=== PATIENT | female | born 1990 | race American Indian/Alaskan Native ===

== ENCOUNTER 2017-10-24 11:00 | Outpatient (CLI) | payer OTHER | END 2017-10-24 11:01 | disposition home or self-care (01) | LOC: SLR 11:00 | PROVIDERS: ATTEND Otolaryngology | DX: G47.30 Sleep apnea, unspecified (principal); R40.0 Somnolence; R06.83 Snoring | CPT/HCPCS: G0399 ==

== ENCOUNTER 2020-06-14 20:38 | Inpatient (IN) | payer OTHER, MEDICAID ==
[2020-06-14] MEDS ORDERED: TERBUTALINE 1 MG/1 ML INJ SUB-Q PRN (21:58)
[2020-06-14] MEDS ORDERED: ACETAMINOPHEN 325 MG TAB PO PRN (21:58)
[2020-06-14] MEDS ORDERED: ePHEDrine SULFATE 50 MG/1 ML INJ IV PRN (21:58)
[2020-06-14] MEDS ORDERED: LIDOCAINE (2%) 20 MG/1 ML VIAL 20 ML MDV INFILTRATI ONE (21:58)
[2020-06-14] MEDS ORDERED: MINERAL OIL 30 ML ORAL LIQD PO PRN (21:58)
[2020-06-14] MEDS ORDERED: LACTATED RINGERS 1,000 ML IV SCH (22:00)
[2020-06-14] MEDS ORDERED: OXYTOCIN DRIP 30 UNITS/500 ML BAG IV SCH (22:00)
[2020-06-14 22:17] LABS: Hematocrit 27.6 % (30.3-42.9); Mean Corpuscular HGB Conc 33 % (30-34); Mean Corpuscular Volume 82 fl (79-97); Platelet Count 242 K/mm3 (140-440); Red Blood Count 3.39 M/mm3 (3.65-5.03); Red Cell Distribution Width 13.7 % (13.2-15.2)
[2020-06-14] MEDS ORDERED: DINOPROSTONE 10 MG VAG SUPP VG ONE (23:10)
[2020-06-15] MEDS ORDERED: DINOPROSTONE 10 MG VAG SUPP VG ONE (00:30)
[2020-06-15] MEDS ORDERED: LACTATED RINGERS 1,000 ML IV ONE (01:19)
[2020-06-15] MEDS ORDERED: OXYTOCIN DRIP 30 UNITS/500 ML BAG IV SCH ×2 (08:00→15:02)
--- NOTE | 2020-06-15 08:29 | History and Physical Report ---
History of Present Illness Date of examination: 06/15/20 Date of admission: 06/14/20 21:58 Chief complaint: induction of labor for morbid obesity History of present illness: Pt is a 29 year old -[place] 06/19/20 at 39w3d who presents for induction of labor for morbid obesity. She denies vaginal bleeding or leakage of fluid. She has had care at [facility] since 10wks complicated by morbid obesity, sma carrier status and close interval . She is GBS negative. Past History Past Medical History: no pertinent history Past Surgical History: gastric bypass (gastric sleeve ) Family/Genetic History: none Social history: no significant social history - Obstetrical History Expected Date of Delivery: 06/19/20 Actual Gestation: 39 Week(s) 3 Day(s) : 4 Para: 1 Hx # Term Pregnancies: 1 Number of Pregnancies: 0 Spontaneous Abortions: 2 Induced : 0 Number of Living Children: 1 Medications and Allergies Allergies Allergy/AdvReac Type Severity Reaction Status Date / Time No Known Allergies Allergy Unverified 06/01/19 22:38 Home Medications Medication Instructions Recorded Confirmed Last Taken Type Omeprazole 20 mg PO DAILY 06/14/20 06/14/20 06/14/20 History Active Meds: Active Medications Acetaminophen (Acetaminophen 325 Mg Tab) 650 mg PO Q4H PRN PRN Reason: Pain, Mild (1-3) Butorphanol Tartrate (Butorphanol 2 Mg/1 Ml Inj) 2 mg IV Q2H PRN PRN Reason: Pain , Severe (7-10) Ephedrine Sulfate (Ephedrine Sulfate 50 Mg/1 Ml Inj) 10 mg IV Q2M PRN PRN Reason: Hypotension Lactated Ringer's (Lactated Ringers) 1,000 mls @ 125 mls/hr IV DIRECT VIJAY Last Admin: 06/15/20 08:05 Dose: 125 mls/hr Documented by: Oxytocin/Sodium Chloride (Pitocin/Ns 30 Unit/500ml) 30 units in 500 mls @ 40 mls/hr IV TITR VIJAY Oxytocin/Sodium Chloride (Pitocin/Ns 30 Unit/500ml) 30 units in 500 mls @ 2 mls/hr IV TITR VIJAY; Protocol Last Admin: 06/15/20 08:05 Dose: 2 ml/hrs, 2 mls/hr Documented by: Mineral Oil (Mineral Oil 30 Ml Oral Liqd) 30 ml PO QHS PRN PRN Reason: Constipation Terbutaline Sulfate (Terbutaline 1 Mg/1 Ml Inj) 0.25 mg SUB-Q ONCE PRN PRN Reason: Hyperstimulation/Hypertonicity Review of Systems All systems: negative - Vital Signs Vital signs: Vital Signs Pulse BP 93 H 113/73 06/14/20 21:26 06/14/20 21:26 Temp Pulse Resp BP Pulse Ox 98.5 F 76 18 115/55 98 06/15/20 07:02 06/15/20 07:02 06/15/20 07:02 06/15/20 07:02 06/15/20 07:02 - Physical Exam Breasts: Positive: deferred Abdomen: Positive: soft (obese, gravid ) Genitourinary (Female): Positive: normal external genitalia Uterus: Positive: enlarged (gravid ) Extremities: Positive: normal - Obstetrical FHR: auscultation normal Uterine Contraction Monitor Mode: External Cervical Dilatation: 1 Cervical Effacement Percentage: 50 station: -3 Uterine Contraction Pattern: Irregular Uterine Tone Measurement Phase: Resting Uterine Contraction Intensity: Strong/Firm Results Result Diagrams: 06/14/20 21:45 Abnormal lab results 06/14/20 Range/Units 21:45 RBC 3.39 L (3.65-5.03) M/mm3 Hgb 9.0 L (10.1-14.3) gm/dl Hct 27.6 L (30.3-42.9) % MCH 27 L (28-32) pg All other labs normal. Assessment and Plan A: IUP at 39w3d Morbid Obesity GBS Negative P: Admit to labor and delivery Routine intrapartum care Closely monitor maternal and status
[2020-06-15] MEDS: BUTORPHANOL 2 MG/1 ML INJ IV PRN ×2 (09:37→11:42)
[2020-06-15] MEDS ORDERED: LIDOCAINE (2%) 20 MG/1 ML VIAL 20 ML MDV INFILTRATI ONE (13:10)
--- NOTE | 2020-06-15 13:34 | Procedure Note ---
OB Delivery Note - Delivery Date of Delivery: 06/15/20 Surgeon: KARLO SOOD Estimated blood loss: 300cc - Vaginal Delivery presentation: vertex Delivery position: OA Intrapartum events: PROM->1hr before delivery, mult.variable deceleratio Delivery induction: cervidil Delivery augmentation: pitocin Delivery monitor: external FHT, external uterine Route of delivery: Delivery placenta: spontaneous Delivery cord: nuchal cord Episiotomy: none Delivery laceration: 2nd degree Delivery repair: vicryl Anesthesia: local, intravenous - Infant A at 1 minute: 8 at 5 minutes: 9 Infant Gender: Male (3653g (8lb 0.8 oz) @ 1302 pm)
[2020-06-15] MEDS ORDERED: diphenhydrAMINE 25 MG CAP PO PRN (15:02)
[2020-06-15] MEDS ORDERED: PROMETHAZINE 25 MG RECT SUPP PR PRN (15:02)
[2020-06-15] MEDS ORDERED: PROMETHAZINE 25 MG TAB PO PRN (15:02)
[2020-06-15] MEDS ORDERED: LANOLIN/ZINC/DIMETHICONE (LANSINOH) 7 GM TP PRN ×2 (15:02)
[2020-06-15] MEDS ORDERED: BENZOCAINE/MENTHOL 20/0.5% TOP SPRAY 56 GM TP PRN (15:02)
[2020-06-15] MEDS ORDERED: WITCH HAZEL/ GLYCERIN PAD TP PRN (15:02)
[2020-06-15] MEDS ORDERED: MAGNESIUM HYDROXIDE (MOM) ORAL LIQD UDC PO PRN (15:02)
[2020-06-15] MEDS ORDERED: ONDANSETRON 4 MG/2 ML INJ IV PRN (15:02)
[2020-06-15] MEDS: IBUPROFEN 600 MG TAB PO SCH (22:53)
[2020-06-15] MEDS: FERROUS SULFATE 325 MG TAB PO SCH (23:03)
[2020-06-15] MEDS: HYDROcodone/ACETAMINOPHEN 5-325 MG TAB PO PRN (23:05)
[2020-06-16 01:43] LABS: Hematocrit 25.4 % (30.3-42.9); Hemoglobin 8.3 gm/dl (10.1-14.3)
[2020-06-16] MEDS: IBUPROFEN 600 MG TAB PO SCH ×2 (02:17→06:02)
[2020-06-16] MEDS: HYDROcodone/ACETAMINOPHEN 5-325 MG TAB PO PRN ×2 (05:31→12:01)
[2020-06-16] MEDS ORDERED: DIPHtheria,PERTUSSIS(ACELL),TETANUS VACCINE/PF 0.5 ML VIAL IM ONE (06:00)
[2020-06-16] MEDS ORDERED: MEASLES, MUMPS & RUBELLA 12,500 UNIT/0.5 ML VACCINE SUB-Q ONE (06:00)
[2020-06-16] MEDS: FERROUS SULFATE 325 MG TAB PO SCH (09:51)
[2020-06-16] MEDS ORDERED: PRENATAL VIT27-FE FUMARATE-FOLIC ACID VIT TAB PO SCH (10:00)
[2020-06-16 10:07] VITALS: BP 125/73
--- NOTE | 2020-06-16 12:37 | Progress Note ---
Assessment and Plan A: PPD1 s/p Acute on chronic anemia due to and blood loss Vital signs stable P: Discharge to home today with ferrous sulfate supplementation Subjective - Subjective Date of service: 06/16/20 Principal diagnosis: s/p Interval history: PPD1 s/p Patient reports: appetite normal, voiding normally, pain well controlled, ambulating normally [place]: doing well, bottle feeding Objective - Vital Signs Latest vital signs: Vital Signs Temp Pulse Resp BP BP Pulse Ox 06/16/20 12:01 18 06/16/20 08:49 97.6 F 86 18 125/73 100 06/16/20 06:26 18 06/16/20 05:31 18 06/16/20 00:31 98.2 F 94 H 20 98/47 98 06/16/20 00:05 18 06/15/20 23:05 18 06/15/20 20:00 98.2 F 81 20 126/65 98 06/15/20 15:17 98.0 F 73 18 121/57 99 06/15/20 15:02 18 06/15/20 14:18 75 128/64 06/15/20 14:17 73 144/72 06/15/20 14:15 58 L 96 06/15/20 14:10 75 96 06/15/20 14:09 98.3 F 76 18 128/66 128/66 97 06/15/20 14:05 84 98 06/15/20 14:00 78 123/59 96 06/15/20 13:55 79 97 06/15/20 13:50 80 96 06/15/20 13:46 83 119/70 06/15/20 13:45 88 97 06/15/20 13:40 86 98 06/15/20 13:35 84 97 06/15/20 13:30 80 122/67 98 06/15/20 13:25 92 H 98 06/15/20 13:20 82 97 06/15/20 13:15 82 131/71 94 Intake and Output 06/15/20 06/16/20 06/16/20 23:59 07:59 15:59 Other: # Voids Void 1 1 - Exam Abdomen: Present: soft. Absent: distention, tenderness, guarding Uterus: Present: firm, fundal height below umbilicus. Absent: bogginess, tenderness Extremities: Present: normal - Labs Labs: Abnormal lab results 06/16/20 Range/Units 01:24 Hgb 8.3 L (10.1-14.3) gm/dl Hct 25.4 L (30.3-42.9) %
--- NOTE | 2020-06-16 12:38 | Discharge Summary ---
Providers - Providers Date of Admission: 06/14/20 21:58 Date of discharge: 06/16/20 Attending physician: TERE HOLDER 06/15/20 15:02 Consult to Photo Finisher [CONS] Routine Reason For Exam: assistance with , SNS Primary care physician: TERE HOLDER Hospitalization Reason for admission: induction of labor (for obesity), IUP at term Delivery: Laceration: 2nd degree Other procedures: none complications: none Discharge diagnosis: IUP at term delivered [place] baby: male Condition at discharge: Good Disposition: DC-01 TO HOME OR SELFCARE Plan - Discharge Medications Prescriptions: Ferrous Sulfate [Feosol 325 MG tab] 325 mg PO BID #60 tablet - Provider Discharge Summary Activity: routine, no sex for 6 weeks, no heavy lifting 4 weeks, no strenuous exercise Diet: routine Instructions: routine Additional instructions: [] Smoking cessation referral if applicable(refer to patient education folder for contact #) [] Refer to [facility] Booklet Call your doctor immediately for: * Fever > 100.5 * Heavy vaginal bleeding ( >1 pad per hour) * Severe persistent headache * Shortness of breath * Reddened, hot, painful area to leg or breast * Drainage or odor from incision. * Keep incision clean and dry at all times and follow doctor's instructions regarding bathing/showering - Follow up plan Follow up: NISREEN ROMAN, CONVENTION SERVICES DIRECTOR [Advanced Practice Nurse] - 14 Days (Please call office to schedule appointment in 2-4 weeks)
== END 2020-06-16 15:21 | disposition home or self-care (01) | DRG 806 ==
LOC: TRG 20:38 → LD 20:40 → TRG 21:58 → OB 06-15 14:56
PROVIDERS: ADMIT Obstetrics & Gynecology; ATTEND Obstetrics & Gynecology
PROC: 10E0XZZ Delivery of Products of Conception, External Approach (ICD-10-PCS; principal; 2020-06-15)
PROC: 0KQM0ZZ Repair Perineum Muscle, Open Approach (ICD-10-PCS; 2020-06-15)
PROC: 3E0P7VZ Introduction of Hormone into Female Reproductive, Via Natural or Artificial Opening (ICD-10-PCS; 2020-06-15)
PROC: 3E0234Z Introduction of Serum, Toxoid and Vaccine into Muscle, Percutaneous Approach (ICD-10-PCS; 2020-06-16)
DX: O99.214 Obesity complicating childbirth (principal); D62 Acute posthemorrhagic anemia; Z37.0 Single live birth; O76 Abnormality in fetal heart rate and rhythm complicating labor and delivery; E66.01 Morbid (severe) obesity due to excess calories; O42.02 Full-term premature rupture of membranes, onset of labor within 24 hours of rupture; O70.1 Second degree perineal laceration during delivery; O90.81 Anemia of the puerperium; O69.81X0 Labor and delivery complicated by cord around neck, without compression, not applicable or unspecified; Z3A.39 39 weeks gestation of pregnancy; Z71.3 Dietary counseling and surveillance; Z20.822 Contact with and (suspected) exposure to COVID-19; Z23 Encounter for immunization
CPT/HCPCS: 36415; 59200; 85014; 85018; 85027; 86592; 86850; 86900; 86901; G0378; J0595; J2590; J7120; U0003